=== PATIENT | male | born 1995 | race Hispanic/Latino ===

== ENCOUNTER → 2017-10-04 | Outpatient (CLI) | payer OTHER | LOC: M RAD 09:11 | DX: M79.661 Pain in right lower leg (principal); M79.662 Pain in left lower leg | CPT/HCPCS: 78315 ==

== ENCOUNTER 2018-02-28 22:52 | Emergency (ER) | payer OTHER ==
[2018-02-28] MEDS: NS 1,000 ML IV (23:00)
[2018-02-28] MEDS: HYDROmorphone HCL 1 MG/ML SYRINGE (J1170) IV ×2 (23:00→23:15)
[2018-02-28] MEDS ORDERED: ONDANSETRON 4MG/2ML VIAL (J2405) As Ordered (23:06)
[2018-02-28] MEDS: ONDANSETRON 4MG/2ML VIAL (J2405) IV (23:12)
[2018-02-28] MEDS: ceFAZolin SOD 1 GM in D5W MINI-BAG PLUS 50 ML IV (23:12)
[2018-02-28 23:13] LABS: BASO % 0.5 % (0.0-1.0); EOS # 0.1 10^3/uL (0.0-0.50); EOS % 1.3 % (0.0-3.0); HEMATOCRIT 39.8 % (42.0-52.0); HEMOGLOBIN 13.3 g/dl (13.5-17.5); IMMATURE GRANULOCYTE % 0.1 % (0-3.0); LYMPH # 3.2 10^3/uL (1.5-6.5); LYMPH % 38.9 % (24.0-44.0); MEAN CORPUSCULAR HEMOGLOBIN 28.3 pg (27.0-33.0); MEAN CORPUSCULAR HGB CONC 33.4 g/dl (32.0-36.5); MEAN CORPUSCULAR VOLUME 84.7 fl (80.0-96.0); MONO # 0.8 10^3/uL (0.0-0.8); MONO % 10.3 % (0.0-5.0); NEUTROPHILS % 48.9 % (36.0-66.0); PLATELET COUNT, AUTOMATED 224 10^3/uL (150-450); RED CELL DISTRIBUTION WIDTH 12.7 % (11.5-14.5); WHITE BLOOD COUNT 8.2 10^3/uL (4.0-10.0)
[2018-02-28 23:34] LABS: ALBUMIN 4.4 GM/DL (3.2-5.2); ALBUMIN/GLOBULIN RATIO 1.22 (1.00-1.93); ALKALINE PHOSPHATASE 74 U/L (45-117); ALT/SGPT 22 U/L (12-78); ANION GAP 8 MEQ/L (8-16); AST/SGOT 17 U/L (7-37); BILIRUBIN,DIRECT 0.1 MG/DL (0.0-0.2); BILIRUBIN,TOTAL 0.3 MG/DL (0.2-1.0); BLOOD UREA NITROGEN 22 MG/DL (7-18); CALCIUM LEVEL 8.7 MG/DL (8.5-10.1); CARBON DIOXIDE LEVEL 29 MEQ/L (21-32); CHLORIDE LEVEL 105 MEQ/L (98-107); CREATININE FOR GFR 1.33 MG/DL (0.70-1.30); ETHYL ALCOHOL (ETHANOL) < 0.003 % (0.000-0.010); GLUCOSE, FASTING 95 MG/DL (70-100); POTASSIUM SERUM 3.4 MEQ/L (3.5-5.1); SODIUM LEVEL 142 MEQ/L (136-145)
[2018-03-01] MEDS: NORCO 5/325MG TABLET (BULK FOR ED) PO (01:14)
== END 2018-03-01 01:46 | disposition home or self-care (01) ==
LOC: M ED 22:52
DX: S82.402A Unspecified fracture of shaft of left fibula, initial encounter for closed fracture (principal); W31.89XA Contact with other specified machinery, initial encounter; Y92.9 Unspecified place or not applicable; Y93.9 Activity, unspecified; Y99.1 Military activity; Z72.0 Tobacco use
CPT/HCPCS: J0690